=== PATIENT | female | born 2005 | race Caucasian/White ===

== ENCOUNTER 2025-02-18 00:56 | Day surgery (SDC) | payer BC, SELFPAY ==
[2025-02-07 10:00] VITALS: BMI 16.7
--- OUTSIDE RECORDS SUMMARY | 2025-02-18 00:59 | XMS_ITS | Clinical Summary ---
Author Organization [facility] Address [address] [place] [address] Care Team Providers Care Hotbed Operator Name Role Phone Lea Andrade [facility] Primary Care Provid er Allergies No known active allergies Medications TRI-SPRINTEC 0.18/0.215/0.25 MG-35 MCG tablet Take 1 tablet by mouth daily. 09/17/20 21 Active clindamycin (CLEOCIN T) 1 % gel APPLY TOPICALLY TO FACE EVERY MORNING 10/27/19 25 Active ondansetron (ZOFRAN-ODT) 4 MG disintegrating tabletIndications :Oropharyngeal dysphagia Take 1 tablet (4 mg total) by mouth every 8 (eight) hours as needed for Nausea. 20 tablet 12/03/19 25 Active hydrOXYzine (ATARAX) 10 MG tablet Take 1 tablet (10 mg total) by mouth. 01/26/20 22 Active omeprazole (PRILOSEC) 20 MG capsule Take 1 capsule (20 mg total) by mouth daily. 01/26/20 25 Active ARAZLO 0.045 % Lotion 01/04/20 25 Active azithromycin (ZITHROMAX Z-DARREN) 250 MG tabletIndications :Bronchitis Take Two tablets on first day, then on tablet QD x 4 additional days 6 tablet 01/27/20 25 Active methylPREDNISolon e, DARREN, (MEDROL DOSEPAK) 4 MG tabletIndications :Bronchitis Take 1 tablet (4 mg total) by mouth daily. 6 TABLETS ON DAY ONE, 5 TABLETS DAY TWO, 4 TABLETS DAY THREE, 3 TABLETS DAY FOUR, 2 TABLETS DAY FIVE, AND 1 TABLET DAY SIX 1 each 01/27/20 25 Active albuterol sulfate HFA 108 (90 Base) MCG/ACT inhalerIndication s:Bronchitis Inhale 2 puffs into the lungs every 6 (six) hours as needed. 18 g 1 01/27/20 25 Active Spacer/Aero-Holdi ng Chambers DeviceIndications :Bronchitis 1 Device by Does not apply route daily. 1 each 01/27/20 25 Active AMZEEQ 4 % Foam 07/26/20 24 2024 Discontinued( Pt. elected to discontinue med) triamcinolone (KENALOG) 0.1 % cream Apply topically 2 (two) times daily. 07/21/202024 Discontinued( Therapy completed) ondansetron (ZOFRAN) 4 MG tablet Take 1 tablet (4 mg total) by mouth every 8 (eight) hours. 12/17/192024 Discontinued( Duplicate Med) Active Problems Problem Noted Date Diagnosed Date Schatzki ring of distal esophagus 12/03/2024 Anxiety Depression Encounters Date Type Department Care Team Description 01/26/2025 8:20 AM CDT Office Visit [address] [phone] Lea Andrade FNP-BC URI/ENT Symptoms (Sore throat, sinus drainage, cough. Cough started 5 days ago. Patietn complains of being wheezy. Swollen lymph nodes for 2 weeks now. ) 01/26/2025 Travel 12/17/2024 Scan HEALTH INFO SRVCS Scanned, [facility] 12/03/2024 11:00 AM POT RELINER Office Visit [address] [address] Lea Andrade FNP-BC Establish Care 12/03/2024 Travel from Last 3 Months Immunizations Immunization Administration Dates Next Due DTaP (Daptacel) 06/06/2008, 6,2004,10/06,2004 Flumist (Intranasal LAIV4) 08/12/2014 Fluzone High Dose - >Age 65 (Prefilled Syringe) 11/16/2009,08/31/2009 H1N1 2009 Influenza Vaccine 11/16/2009, 9 HPV GARDASIL 9-VALENT 12/05/2015,08/01/2015,05/20 Hepatitis A (Havrix [address]) 06/06/2009, 007 Hepatitis B Pediatric 03/06/2005,2004,05/20 Hib (Omni-Hib) 08/28/2005, 5,2004,08/01 Influenza (Generic) 08/10/2013, 2,07/11/2011,08/15,07/12/2009,08/24/2008,08/20/2007 ,08/13/2006,08/28/2005,07/24/2005 Influenza Adult (Generic) 07/26/2020,,08/18/2018,09/26,08/01/2015 MMR (MMRII) 06/06/2008,06/05/2005 Meningococcal (Menactra) 07/26/2020,06/01/2015 Pneumococcal (Prevnar 7) 06/05/2005,11/20,2004,08/01 Polio IPV (Ipol) 06/06/2008, 5,2004,08/01 Tdap (Adacel) 12/03/2024 Tdap (Generic) 06/01/2015 Varicella (Varivax) 06/06/2008,08/28/2005 Family History Medical History Relation Comments No Known Problems Brother 1 No Known Problems Brother 2 No Known Problems Brother 3 No Known Problems Father Multiple Sclerosis Maternal Aunt None Mother Stroke Paternal Grandfather in 50's Relation Status Comments Brother 1 Alive Brother 2 Alive Brother 3 Alive Father Alive Maternal Aunt Maternal Grandfather Alive Maternal Grandmother Alive Mother Alive Paternal Grandfather Paternal Grandmother Alive Social History Tobacco Use Types Packs/Day Years Used Date Smoking Tobacco: Never Smokeless Tobacco: Never Tobacco Cessation:Counseling Given: No Alcohol Use Standard Drinks/Week Comments Never 0 (1 standard drink = 0.6 oz pur e alcohol) PHQ-2 Answer Date Recorded Patient Health Questionnaire-2 Score 0 12/03/2024 Comments No Sex and Gender Information Value Date Recorded Sex Assigned at Female 12/03/2024 11:00 AM POT RELINER Legal Sex Female 8:42 PM CDT Gender Identity Not on file Sexual Orientation Not on file Last Filed Vital Signs Vital Sign Reading Time Taken Comments Blood Pressure 123/82 01/26/2025 8:24 AM CDT Pulse 106 01/26/2025 8:24 AM CDT Temperature 36.8 C (98.3 F) 01/26/2025 8:24 AM CDT Respiratory Rate 18 01/26/2025 8:24 AM CDT Oxygen Saturation 96% 01/26/2025 8:24 AM CDT Inhaled Oxygen Concentration - - Weight 49.7 kg (109 lb 9.6 oz) 01/26/2025 8:24 A M CDT Height 162.6 cm (5' 4 ) 01/26/2025 8:24 AM CDT Body Mass Index 18.81 01/26/2025 8:24 AM CDT Plan of Treatment Upcoming Encounters Date Type Department Care Team (Late st Contact Info) Description 12/05/2025 9:00 AM POT RELINER Office Visit [facility] [address] [place] [address] [facility] [address] [place] [address] Health Maintenance Due Date Last Done Comments Chlamydia Screening Females ages 16-24 2020 Hepatitis C 2022 Annual Physical 12/03/2025 12/03/2024 COVID-19 Vaccine ( season) 2025 11/08/2021, 04/25/2021, 04/04/2021 Postponed from 06/20/2024 (Patient Refused) Meningococcal B Vaccine (1 of 2 - Standard) 12/03/2025 Postponed from 2020 (Patient Refused) DTaP, Tdap and Td Vaccines (8 - Td or Tdap) 12/03/2034 12/03/2024, 06/01/2015, 06/06/2008, Additional history exists Hepatitis B Vaccines Completed 03/06/2005, 2004, 2004 Pneumococcal Vaccine: Pediatrics (0 to 5 Years) and At-Risk Patients (6 to 49 Years) Aged Out 06/05/2005, 2004, 2004, Additional history exists No longer eligible based on patient's age to complete this topic HPV Vaccines Completed 12/05/2015, 07/20, 06/01/2015 Meningococcal Vaccine Completed 07/26/2020, 015 PHQ-2 (Physician [place]) Completed 12/03/2024 RSV Immunizations Under 20 Months Aged Out No longer eligible based on patient's age to complete this topic Insurance [place] [address] Care Teams Hotbed Operator Relationship Specialty Start Date End Date Lea Andrade FNP-GI [address] [place] [address] PCP - General Nurse Practitioner Family 12/03/24
[2025-02-18 12:42] VITALS: BP 108/69; PULSE 90; RESP 20; TEMP 36.6; O2SAT 100
[2025-02-18] MEDS: LACTATED RINGERS 1,000 ML 150 ML IV CONT (12:52)
--- NOTE | 2025-02-18 13:22 | PM.HPGS ---
History of Present Illness History of Present Illness Consent: Risks, benefits, and alternatives have been discussed and questions answered. Patient agrees to proceed with procedure. Chief complaint: GERD, Dysphagia Narrative: Lauren Bradley is a 19 year old female with dysphagia and gerd on omeprazole, had EGD previously at another institution, noted ring that was dilated which helped for few months Review of Systems Review of Systems: All systems reviewed & are unremarkable except as noted in HPI and below PMFSH Past Medical History Medical History (Updated 02/17/25 @ 15:25 by Farhat Stewart DO) Anxiety GERD (gastroesophageal reflux disease) Social History Social History Smoking status: Smoker, status unknown Tobacco type: e-cigarettes/vaping Alcohol intake: never Substance use: former Substance use type: marijuana Last use: 9 months ago Meds Home Medications and Allergies Home Medications ?Medication ?Instructions ?Recorded ?Confirmed ?Type hydroxyzine HCl 10 mg/5 mL oral 10 mg PO QID PRN anxiety 12/17/24 02/07/25 History solution norgestimate-ethinyl estradiol 1 tablet PO DAILY 12/17/24 02/18/25 History 0.18mg/0.215mg/0.25mg-0.035mg(28)tablet (Tri-Sprintec (28)) omeprazole 20 mg capsule,delayed 20 mg PO BID #60 caps 12/17/24 02/18/25 Rx release ondansetron HCl 4 mg tablet 4 mg PO Q8H #20 tabs 12/17/24 02/18/25 Rx Allergies Allergy/AdvReac Type Severity Reaction Status Date / Time No Known Allergies Allergy Verified 02/18/25 12:40 Vital Signs Vital Signs - 24 hr 02/18/25 12:42 Temperature 97.8 F Pulse Rate 90 Respiratory Rate 20 Blood Pressure 108/69 Pulse Oximetry 100 Oxygen Delivery Room Air Exam Const: General: comfortable and no acute distress HENMT: Face/Nose/Sinus: Normal nares present Eyes: General: appearance normal, both eyes and all related structures Neck: Neck: no JVD Resp: Auscultation: clear to auscultation bilaterally Cardio: Rate: regular rate Rhythm: regular rhythm GI: Inspection: non-distended GI Palp: Yes Soft to palpation Skin: General skin exam: normal color Neuro: General: gait normal Speech: normal speech Extrem: General: normal to inspection Psych: Mental Status: mental status grossly normal Assessment and Plan Assessment and plan (1) Dysphagia: Code(s): R13.10 - Dysphagia, unspecified Status: Acute Assessment and Plan: egd, will assess if ring (2) GERD (gastroesophageal reflux disease): Code(s): K21.9 - Gastro-esophageal reflux disease without esophagitis Status: Acute Assessment and Plan: on ppi
[2025-02-18 13:33] LABS: BEDSIDEPREGUCG Negative (Negative)
[2025-02-18 13:34] VITALS: BP 96/55; PULSE 73; RESP 19; O2SAT 100
[2025-02-18 13:44] VITALS: BP 103/65; PULSE 78; RESP 20; O2SAT 100
[2025-02-18 13:54] VITALS: BP 106/72; PULSE 92; RESP 20; O2SAT 100
== END 2025-02-18 14:09 | disposition home or self-care (01) ==
PROVIDERS: PCP Nurse Practitioner Family; Referring Provider Nurse Practitioner; Visit Provider Internal Medicine Gastroenterology
PROC: 0DJ08ZZ Inspection of Upper Intestinal Tract, Via Natural or Artificial Opening Endoscopic (ICD-10-PCS; CPT 43239; principal; 2025-02-18 14:00)
DX: K21.9 Gastro-esophageal reflux disease without esophagitis (principal); F41.9 Anxiety disorder, unspecified; F17.290 Nicotine dependence, other tobacco product, uncomplicated; F12.90 Cannabis use, unspecified, uncomplicated
CPT/HCPCS: 43239; 43450; 88305; J2003; J2704; J7120

== ENCOUNTER 2025-06-21 08:32 | Outpatient (CLI) | payer BC, SELFPAY ==
--- OUTSIDE RECORDS SUMMARY | 2010-09-09 19:00 | XMS_ITS | Continuity of Care Document ---
Author Organization [facility] Address [address] [place] [address] Phone Care Team Providers Care Terrazzo Installer Name Role Phone Rosendo Wasserman MD Unavailable Unavailable Advance Directives Directive Yes / No Effective Date File Name No Information Encounters Encounter Description Practice Location Reason(s) For Visit Diagnoses Date Provider Providers Copied on Encounter [facility], [address], [place], [place], [id number], [place] tel:[phone] [facility] No Information Lux Robbins. [address], [id number], [place]. tel:[phone] Family History Family Member Type Diagnosis Age At Onset No Information Payers Payer name Insurance type Covered democrat ID Authoriza tion(s) No Information Social History Type Description Quantity Date Captured Comments Sex Female Smoking Status No Information Chief Complaint And Reason For Visit No Information Reason For Referral Reason For Referral No Information History Of Present Illness Encounter Date Complaint History Of Prese nt Illness No Information Functional Status Date Functional Assessmen t No Information Instructions Date Instruction Additional Infor mation No Information Assessments Type Assessment Date No Information Patient Care Teams Name Effective Dates (start - stop) Status Members No Information
--- NOTE | ~2025-06-21 | NM_ITS ---
EXAM: NM gastric emptying study DATE: 06/21/2025 13:09 INDICATION: Early satiety. Upper abdominal bloating and nausea. TECHNIQUE: A gastric emptying study was performed using the methodology of Jen KONG, et al. J Nucl Med 2007; 48:568-572. The patient was given a meal consisting of 2 scrambled eggs labeled with 0.962 mCi Tc-99m sulfur colloid, 2 slices of toast, two packages of jam, and approximately 120 mL of water. Simultaneous anterior and posterior 1-min images of the abdomen were obtained with the patient supine at multiple time points over a total period of 4 hours. The geometric mean of anterior and posterior views was determined, and the percentage retention was calculated for each time point. COMPARISON: None. FINDINGS: Gastric retention of the radiotracer-labeled meal was 30%, 11%, and 4% at the 1- hour, 2-hour, and 4-hour time points, respectively. With this technique, apparent rapid gastric emptying is suggested by <30% gastric retention at 1 hour. Delayed gastric emptying is defined by gastric retention of >90% at 1 hour, >60% retention at 2 hours, or >10% retention at 4 hours. IMPRESSION: 1. Borderline rapid gastric emptying. Reviewed, dictated and finalized at location A.
== END 2025-06-21 08:33 | disposition home or self-care (01) ==
LOC: ANHIMG 08:33
PROVIDERS: PCP Nurse Practitioner Family; Visit Provider Nurse Practitioner
DX: R68.81 Early satiety (principal); R14.0 Abdominal distension (gaseous); K21.9 Gastro-esophageal reflux disease without esophagitis; K30 Functional dyspepsia
CPT/HCPCS: 78264; A9541